=== PATIENT | female | born 1975 | race Caucasian/White ===

== ENCOUNTER → 2016-11-07 | Outpatient (CLI) | payer OTHER | END | disposition home or self-care (01) | LOC: CDC 12:00 | DX: Z01.810 Encounter for preprocedural cardiovascular examination (principal) | CPT/HCPCS: 93000 ==

== ENCOUNTER 2016-11-25 11:23 | Day surgery (SDC) | payer OTHER ==
[~2016-11-25] VITALS: Ht 162.6 cm; Wt 73.5 kg
[~2016-11-25 11:23] MED LIST: ALENDRONATE SOD70 MG PO; BUSPIRONE HCL10 MG PO; CLARITIN,ALAVAR10 MG PO; CLONIDINE HCL0.2 MG PO; CYCLOBENZAPRINE10 MG PO; DULOXETINE HCL30 MG PO; DULOXETINE HCL60 MG PO; FENOFIBRATE134 M1 PO; LEXAPRO20 MG PO; METFORMIN HCL500 MG PO; METOPROLOL TART25 MG PO; MINIPRESS2 MG PO; MIRTAZAPINE45 MG PO; NORCO 7.5/321 TABLET PO; OMEPRAZOLE40 M1 PO; PROAIR HFA8.5 GM IH; ROBAXIN750 MG PO; TOPAMAX50 MG PO; TRILEPTAL600 MG PO; VITAMIN D32000 UNI1 PO; [UNRECOGNIZED DRUG - OTHER] PO
[2016-11-25 12:18] VITALS: BP 117/64
[2016-11-25] MEDS ORDERED: IBUPROFEN800 MG PO (15:36)
[2016-11-25] MEDS ORDERED: TYLENOL WITH C1 EACH PO (15:36)
[2016-11-25 18:40] VITALS: BP 113/56
[2016-11-25 19:36] VITALS: BP 112/67
[2016-11-25 20:05] VITALS: BP 114/63
[2016-11-28 11:34] LABS: INTERNAL CONTROL VALID? YES
== END 2016-11-25 20:10 | disposition home or self-care (01) ==
LOC: SDC 11:23
PROVIDERS: Obstetrics & Gynecology Gynecology
DX: Z30.2 Encounter for sterilization (principal); N92.0 Excessive and frequent menstruation with regular cycle
CPT/HCPCS: 84703; 88302; 88305; J0131; J0330; J1100; J1170; J1885; J2250; J2405; J3010